=== PATIENT | male | born 1995 | race Caucasian/White ===

== ENCOUNTER 2016-11-22 05:26 | Emergency (ER) | payer OTHER ==
--- NOTE | 2016-11-22 06:54 | ER Document Report ---
HPI - HPI Patient complains to provider of: Cough and wheeze Onset: Other - 7 days Onset/Duration: Gradual Pain Level: 2 Context: 20-year-old non-smoker complaining of coughing, fever, and chest tightness for 7 days. He was coughing really bad this morning so he came into the emergency room. No vomiting or diarrhea. No shortness of breath. Associated Symptoms: None Exacerbated by: Coughing Relieved by: Denies Similar symptoms previously: No Recently seen / treated by doctor: No - ROS ROS below otherwise negative: Yes Systems Reviewed and Negative: Yes All other systems reviewed and negative - CARDIOVASCULAR Cardiovascular: DENIES: Chest pain - DERM Skin Color: Normal Past Medical History - General Information source: Patient - Social History Smoking Status: Never Smoker Chew tobacco use (# tins/day): No Frequency of alcohol use: None Drug Abuse: None Lives with: Family Family History: Reviewed & Not Pertinent - Medical History Medical History: Negative Renal/ Medical History: Denies: Hx Peritoneal Dialysis Surgical Hx: Negative Vertical Provider Document - CONSTITUTIONAL Agree With Documented VS: Yes Exam Limitations: No Limitations General Appearance: No Apparent Distress - HEENT HEENT: Normocephalic, Pharyngeal Erythema. negative: Tympanic Membrane Red - NECK Neck: Supple. negative: Lymphadenopathy-Left, Lymphadenopathy-Right - RESPIRATORY Respiratory: Rhonchi - Expiratory course, Wheezing - Expiratory bilateral O2 Sat by Pulse Oximetry: 99 - CARDIOVASCULAR Cardiovascular: Regular Rate, Regular Rhythm - GI/ABDOMEN Gastrointestinal: Abdomen Soft, Abdomen Non-Tender, No Organomegaly - MUSCULOSKELETAL/EXTREMETIES Musculoskeletal/Extremeties: MAEW, FROM - NEURO Level of Consciousness: Awake, Alert, Appropriate - DERM Integumentary: Warm, Dry, No Rash Course - Re-evaluation Re-evalutation: 11/22/16 08:59 chest xray is negative, lungs mostly clear after nebulizers, feels better. will tx with zithromax, prednisone, albuterol since sick for 7 days. He knows how to use the inhaler. 11/22/16 20:49 11/22/16 20:53 - Vital Signs Vital signs: Temp Pulse Resp BP Pulse Ox 98.1 F 76 18 139/96 H 99 11/22/16 05:31 11/22/16 05:31 11/22/16 05:31 11/22/16 05:31 11/22/16 05:31 Discharge - Discharge Clinical Impression: Bronchitis Condition: Good Disposition: HOME, SELF-CARE Instructions: Bronchitis With Bronchospasm (Wheezing) ([facility]), Inhaled Bronchodilators ([facility]), Steroid Medication, Azithromycin ([facility]), Family Physicians / Practices Additional Instructions: plenty of fluids to er if worse use the inhaler every 3-4 hours to help break up the mucous and get it out Please complete the patient satisfaction survey if you get one, and return it.. If you do not receive a survey, then you can go to the [facility] website, [email or web address] and place your comments about your very good care. Thank you very much. It was a pleasure being your medical provider today. Prescriptions: Albuterol Sulfate [Proair HFA Inhalation Aerosol 8.5 gm MDI] 2 puff IH Q3HP PRN #1 [email or web address] PRN Reason: Azithromycin [Zithromax] 250 mg PO DAILY #6 tablet Prednisone [Deltasone 20 mg Tablet] 40 mg PO DAILY #8 tablet Forms: Return to Work
[2016-11-22] MEDS ORDERED: IPRATROPIUM/ALBUTEROL 0.5-2.5 MG/3 ML AMPUL NEB ONE (07:07)
[2016-11-22] MEDS ORDERED: PREDNISONE 20 MG TABLET PO ONE (07:07)
[2016-11-22] MEDS ORDERED: ALBUTEROL SULFATE 0.083% NEB 2.5 MG/3 ML AMPUL NEB ONE (07:07)
--- NOTE | 2016-11-22 07:41 | RADIOLOGY REPORT (SQ) ---
EXAM DESCRIPTION: CHEST PA/LAT COMPLETED DATE/TIME: 11/22/2016 7:28 am REASON FOR STUDY: cough, fever 1 week COMPARISON: None. EXAM PARAMETERS: NUMBER OF VIEWS: two views TECHNIQUE: Digital Frontal and Lateral radiographic views of the chest acquired. RADIATION DOSE: NA LIMITATIONS: none FINDINGS: LUNGS AND PLEURA: No opacities, masses or pneumothorax. No pleural effusion. MEDIASTINUM AND HILAR STRUCTURES: No masses or contour abnormalities. HEART AND VASCULAR STRUCTURES: Heart normal size. No evidence for failure. BONES: No acute findings. HARDWARE: None in the chest. OTHER: No other significant finding. IMPRESSION: NO SIGNIFICANT RADIOGRAPHIC FINDING IN THE CHEST. TECHNICAL DOCUMENTATION: JOB ID: [id number] [employer]- All Rights Reserved
[2016-11-22 08:43] VITALS: BP 141/69
== END 2016-11-22 09:12 | disposition home or self-care (01) ==
LOC: ER 05:26
DX: J40 Bronchitis, not specified as acute or chronic (principal); R50.9 Fever, unspecified; R07.9 Chest pain, unspecified
CPT/HCPCS: 94640 ×2; 99283; 71020; J7512; J7620

== ENCOUNTER 2017-01-12 17:45 | Emergency (ER) | payer SELFPAY ==
[2017-01-12] MEDS ORDERED: IBUPROFEN 800 MG TABLET PO ONE (18:59)
[2017-01-12] MEDS ORDERED: CLINDAMYCIN HCL 150 MG CAPSULE PO ONE (18:59)
--- NOTE | 2017-01-12 19:03 | ER Document Report ---
HPI - HPI Patient complains to provider of: Right lower leg abscess Onset: Other Onset/Duration: Gradual - Wednesday Pain Level: 4 Context: 21-year-old nondiabetic male with a draining wound on the right lower lateral leg. He does not know if the spider bit him but it started as a very small area now it is large. No history of MRSA. Associated Symptoms: None Exacerbated by: Movement Relieved by: Denies Similar symptoms previously: No Recently seen / treated by doctor: No - ROS ROS below otherwise negative: Yes Systems Reviewed and Negative: Yes All other systems reviewed and negative - CARDIOVASCULAR Cardiovascular: DENIES: Chest pain - DERM Skin Color: Normal Past Medical History - General Information source: Patient - Social History Smoking Status: Current Every Day Smoker Chew tobacco use (# tins/day): No Frequency of alcohol use: None Drug Abuse: None Lives with: Spouse/Significant other Family History: Reviewed & Not Pertinent - Medical History Medical History: Negative Renal/ Medical History: Denies: Hx Peritoneal Dialysis Surgical Hx: Negative - Immunizations Hx Diphtheria, Pertussis, Tetanus Vaccination: Yes Vertical Provider Document - CONSTITUTIONAL Agree With Documented VS: Yes Exam Limitations: No Limitations - INFECTION CONTROL TRAVEL OUTSIDE OF THE [place] IN LAST 30 DAYS: No - HEENT HEENT: Atraumatic - NECK Neck: Supple - RESPIRATORY O2 Sat by Pulse Oximetry: 99 - MUSCULOSKELETAL/EXTREMETIES Musculoskeletal/Extremeties: MAEW, FROM, Tender - see below, Edema - NEURO Level of Consciousness: Awake, Alert Motor/Sensory: No Motor Deficit, No Sensory Deficit - DERM Integumentary: Abscess - right lateral lower mid leg, 1 cm area in center with necrotic issue, surrounding 2 cm cellulitis, pink 10 cm non tender inflammation. Course - Vital Signs Vital signs: Temp Pulse Resp BP Pulse Ox 98.7 F 86 18 133/94 H 99 01/12/17 17:58 01/12/17 17:58 01/12/17 17:58 01/12/17 17:58 01/12/17 17:58 Procedures - Incision and Drainage Right Lower Leg Time completed: 20:22 Type: Simple Anesthetic type: 1% Lidocaine mL's of anesthetic: 5 Blade size: 11 I&D procedure: Betadine prep applied, Sterile dressing applied Incision Method: Incision made by scalpel Amount/type of drainage: excised necrotic tissue, mild pus (pus had drained at home) Notes: 01/12/17 20:23 4 x 4 and coban Discharge - Discharge Clinical Impression: right lateral lower leg abscess, Incision and drainage Condition: Good Disposition: HOME, SELF-CARE Instructions: Abscess ([facility]), Anti-Inflammatory Medication ([facility]), Clindamycin ( [facility]), MRSA Cellulitis ([facility]), Post Incision and Drainage Additional Instructions: wound check in er tommorrow elevate warm compress take the antibiotics keep the dressing on for 2 days, then wash in shower with washclothe, antibacterial soap daily and dry dressing to er if worse Please complete the patient satisfaction survey if you get one, and return it.. If you do not receive a survey, then you can go to the [facility] website, [email or web address] and place your comments about your very good care. Thank you very much. It was a pleasure being your medical provider today. Prescriptions: Ibuprofen [Motrin 800 mg Tablet] 800 mg PO Q8HP PRN #30 tablet PRN Reason: Clindamycin HCl [Cleocin 150 mg Capsule] 300 mg PO TID #42 capsule Forms: Return to Work
[2017-01-12 20:44] VITALS: BP 132/77
== END 2017-01-12 20:33 | disposition home or self-care (01) ==
LOC: ER 17:45
PROC: 0H9KXZZ Drainage of Right Lower Leg Skin, External Approach (ICD-10-PCS; principal; 2017-01-12)
DX: L02.415 Cutaneous abscess of right lower limb (principal); F17.200 Nicotine dependence, unspecified, uncomplicated
CPT/HCPCS: 99283

== ENCOUNTER 2017-09-14 19:09 | Emergency (ER) | payer BC ==
--- NOTE | 2017-09-14 20:12 | ER Document Report ---
ED Medical Screen (RME) - General Chief Complaint: Abscess Stated Complaint: LEFT KNEE PAIN Time Seen by Provider: 09/14/17 20:07 Mode of Arrival: Wheelchair Information source: Patient Notes: Patient complains of abscess to left knee. Patient did pop the skin lesion and had increased pain to left knee. Patient complains of pain with flexion. Patient denies any fever. TRAVEL OUTSIDE OF THE [place] IN LAST 30 DAYS: No - Related Data Allergies/Adverse Reactions: No Known Allergies Allergy (Verified 01/12/17 18:47) Past Medical History Renal/ Medical History: Denies: Hx Peritoneal Dialysis - Immunizations Hx Diphtheria, Pertussis, Tetanus Vaccination: Yes Physical Exam - Vital signs Vitals: Temp Pulse Resp BP Pulse Ox 98.8 F 106 H 18 133/73 H 97 09/14/17 19:14 09/14/17 19:14 09/14/17 19:14 09/14/17 19:14 09/14/17 19:14 - Skin Skin Color: Erythema - Overlying the anterior aspect of left knee Course - Vital Signs Vital signs: Temp Pulse Resp BP Pulse Ox 98.8 F 106 H 18 133/73 H 97 09/14/17 19:14 09/14/17 19:14 09/14/17 19:14 09/14/17 19:14 09/14/17 19:14
--- NOTE | 2017-09-14 20:44 | ER Document Report ---
ED Skin Rash/Insect Bite/Abscs - General Mode of Arrival: Wheelchair Information source: Patient TRAVEL OUTSIDE OF THE [place] IN LAST 30 DAYS: No - HPI Patient complains to provider of: Tender/swollen area Onset: Yesterday Onset/Duration: Persistent Quality of pain: Throbbing Severity: Severe Pain Level: 5 Skin Character: Other - Swollen red area to the left knee after he "popped a pimple "yesterday Quality of rash: Painful Identify cause: Yes Exacerbated by: Movement, Walking Relieved by: Denies Similar symptoms previously: Yes Recently seen / treated by doctor: No <SONIA CONTRERAS - Last Filed: 09/15/17 02:24> <HU CORADO - Last Filed: 09/15/17 15:30> - General Chief Complaint: Abscess Stated Complaint: LEFT KNEE PAIN Time Seen by Provider: 09/14/17 20:07 Notes: 21-year-old male presents to ED for complaint of pain and swelling to the left knee. He states he popped a pimple on his left knee yesterday morning and he has had increasing pain and swelling to the left knee since then. 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 He states he has not had any fever has not checked his temperature and he is afebrile in the emergency room. He was seen and rapid medical evaluation done by a another provider who ordered some blood work when they ted his blood vasovagal and developed low blood pressure and diaphoresis. He denies any shortness of breath or heart problems or pain at this time. He states he just sometimes when people sticking with a needle he does pass out. (SONIA CONTRERAS) - Related Data Allergies/Adverse Reactions: No Known Allergies Allergy (Verified 01/12/17 18:47) Past Medical History - General Information source: Patient - Social History Smoking Status: Never Smoker Cigarette use (# per day): No Chew tobacco use (# tins/day): No Smoking Education Provided: No Frequency of alcohol use: Occasional Drug Abuse: None Occupation: Door to door sales Family History: Reviewed & Not Pertinent Patient has suicidal ideation: No Patient has homicidal ideation: No - Past Medical History Cardiac Medical History: Reports: None Pulmonary Medical History: Reports: None EENT Medical History: Reports: None Neurological Medical History: Reports: None Endocrine Medical History: Reports: None Renal/ Medical History: Reports: None Malignancy Medical History: Reports None GI Medical History: Reports: None Musculoskeltal Medical History: Reports None Skin Medical History: Reports None Psychiatric Medical History: Reports: None Traumatic Medical History: Reports: None Infectious Medical History: Reports: None Surgical Hx: Negative Past Surgical History: Reports: None - Immunizations Hx Diphtheria, Pertussis, Tetanus Vaccination: Yes <SONIA CONTRERAS - Last Filed: 09/15/17 02:24> Review of Systems - Review of Systems Constitutional: No symptoms reported EENT: No symptoms reported Cardiovascular: No symptoms reported Respiratory: No symptoms reported Gastrointestinal: No symptoms reported Genitourinary: No symptoms reported Male Genitourinary: No symptoms reported Musculoskeletal: No symptoms reported Skin: Other - Red swollen and painful area to the left knee where he states he "popped the pimple " Hematologic/Lymphatic: No symptoms reported Neurological/Psychological: No symptoms reported -: Yes All other systems reviewed and negative <SONIA CONTRERAS - Last Filed: 09/15/17 02:24> Physical Exam - Vital signs Interpretation: Normal - General General appearance: Appears well, Alert - HEENT Head: Normocephalic, Atraumatic Eyes: Normal Pupils: PERRL - Respiratory Respiratory status: No respiratory distress Chest status: Nontender Breath sounds: Normal Chest palpation: Normal - Cardiovascular Rhythm: Regular Heart sounds: Normal auscultation Murmur: No - Abdominal Inspection: Normal Distension: No distension Bowel sounds: Normal Tenderness: Nontender Organomegaly: No organomegaly - Back Back: Normal, Nontender - Extremities General upper extremity: Normal inspection, Nontender, Normal color, Normal ROM , Normal temperature General lower extremity: Normal ROM, Normal temperature, Normal weight bearing. No: Carlotta's sign Knee: Tender, Pain with ROM, Patellar tendon intact. No: Joint effusion - Neurological Neuro grossly intact: Yes Cognition: Normal Orientation: AAOx4 Siomara Coma Scale Eye Opening: Spontaneous [place]ara Coma Scale Verbal: Oriented [place] Coma Scale Motor: Obeys Commands Siomara Coma Scale Total: 15 Speech: Normal Motor strength normal: LUE, RUE, LLE, RLE Sensory: Normal - Psychological Associated symptoms: Normal affect, Normal mood - Skin Skin Temperature: Warm Skin Moisture: Dry Skin Color: Normal Character of irregularity: Erythematous Irregularity with: Swelling, Tenderness, Inflammation <SONIA CONTRERAS - Last Filed: 09/15/17 02:24> - Vital signs Vitals: Temp Pulse Resp BP Pulse Ox 98.8 F 106 H 18 133/73 H 97 09/14/17 19:14 09/14/17 19:14 09/14/17 19:14 09/14/17 19:14 09/14/17 19:14 Course - Laboratory Result Diagrams: 09/14/17 20:30 09/14/17 20:30 - Diagnostic Test Radiology reviewed: Image reviewed <SONIA CONTRERAS - Last Filed: 09/15/17 02:24> - Laboratory Result Diagrams: 09/14/17 20:30 09/14/17 20:30 <HU CORADO - Last Filed: 09/15/17 15:30> - Re-evaluation Re-evalutation: 09/14/17 21:[address] 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 He is afebrile and has not had any fever. He does have a superficial redness to the knee. There is no definite fluctuant area to the knee. There is redness and irritation. Dr. Corado recommended treating the patient with Keflex and Septra and discharged home to return to the ED for any increase in pain swelling or redness. Patient to use warm Epsom salt soaks to the knee at least 4 times a day. Patient verbalized understanding of instructions. Patient was given his first dose of Keflex and Septra in the emergency room and discharged home with prescriptions for Keflex and Septra. (SONIA CONTRERAS ) Pt with no evidence of septic arthritis. Full ROM of leftknee without pain. On evaluation, he had an anterior superficial left knee cellulitis. Given very strict return precautions, especially about signs of septic arthritis, and he understands. (HU CORADO) - Vital Signs Vital signs: Temp Pulse Resp BP Pulse Ox 99.3 F 79 18 119/70 97 09/14/17 21:28 09/14/17 21:28 09/14/17 21:28 09/14/17 21:28 09/14/17 21:28 - Laboratory Laboratory results interpreted by me: 09/14/17 09/14/17 20:30 20:30 WBC 13.4 H RBC 5.65 H Seg Neuts % (Manual) 80 H Lymphocytes % (Manual) 11 L Abs Neuts (Manual) 10.7 H Glucose 72 L Discharge <SONIA CONTRERAS - Last Filed: 09/15/17 02:24> <HU CORADO - Last Filed: 09/15/17 15:30> - Discharge Clinical Impression: superficial left knee cellulitis Condition: Stable Disposition: HOME, SELF-CARE Instructions: Acetaminophen, Family Physicians / Practices, Use of Over-The- Counter Ibuprofen ([facility]) Additional Instructions: CELLULITIS: You have an infection of your skin and underlying soft tissues called cellulitis. This is due to bacteria, which can enter through any break in the skin, or even through an irritated hair follicle. Untreated, cellulitis will usually worsen. Antibiotics are required. Usually, warm packs or warm soaks, and elevation of the infected area are recommended. You should start getting better within 24 to 36 hours. Most infections respond quickly to the right medication. Follow-up care is important, however, to check for abscess (boil) formation, unsuspected foreign body, or resistant infection. If you develop fever, chills, or if the area of infection is becoming rapidly more swollen or painful, call the doctor at once. TRIMETHOPRIM-SULFA: You have been given a prescription for trimethoprim-sulfa (TMS, Septra, Bactrim). This is a combination antibiotic of the sulfa class, often used for urinary tract infections, middle ear infections, bronchitis, shigella intestinal infection, and Pneumocystis pneumonia. TMS is usually well-tolerated. Occasional side effects include nausea and decreased appetite. Septra is not recommended for infants less than two months of age. Do not take this medication if you have experienced severe side effects or allergy to sulfa medicine. You should stop this medicine at once and contact your physician if you develop any rash, joint pain, shortness of breath, bruising, or jaundice ( yellow color in the skin), or if you develop any other new or unusual symptoms. CEPHALEXIN: The antibiotic you've been prescribed is a member of the cephalosporin class. This type of antibiotic covers a wide variety of infections, including those of the skin, lungs, and urinary tract. It's useful for staph infections. This antibiotic is slightly similar to the penicillin family. In rare cases , a person who is allergic to penicillin will also be allergic to this medication. If you have had a severe allergic reaction to penicillin, and have not taken this antibiotic since that time, notify your doctor. Antibiotics which cover many germs ("broad spectrum" antibiotics) are more likely to cause diarrhea or "yeast" infections. Women prone to vaginal yeast problems may suffer an attack after taking this antibiotic. In infants, oral thrush (white spots "stuck" on the cheek) or yeast diaper rash may result. See your doctor if these problems occur. Call at once if you develop itching, hives , shortness of breath, or lightheadedness. TRIMETHOPRIM-SULFA: You have been given a prescription for trimethoprim-sulfa (TMS, Septra, Bactrim). This is a combination antibiotic of the sulfa class, often used for urinary tract infections, middle ear infections, bronchitis, shigella intestinal infection, and Pneumocystis pneumonia. TMS is usually well-tolerated. Occasional side effects include nausea and decreased appetite. Septra is not recommended for infants less than two months of age. Do not take this medication if you have experienced severe side effects or allergy to sulfa medicine. You should stop this medicine at once and contact your physician if you develop any rash, joint pain, shortness of breath, bruising, or jaundice ( yellow color in the skin), or if you develop any other new or unusual symptoms. Epsom Salt Soaks Soak the wound area in a container of warm epsom salt water. If you can't get the wound area into a bucket or mcdowell, use a folded towel soaked in the epsom salt solution and apply to the area. Use clean hot tap water (about the temperature of a very warm bath), mixing in about one (1) teaspoon for every pint of water. Two gallon --> 16 teaspoons Epsom Salts One gallon --> 8 teaspoons Epsom Salts Two quarts --> 4 teaspoons Epsom Salts One quart --> 2 teaspoons Epsom Salts Soak the wound for about 20 minutes while gently moving it around in the water. Repeat this four (4) times a day. Elevation & Warmth The area should be elevated as much as possible over the next 48 hours. Try to keep it above the level of your heart. Apply gentle heat and salt soaks for about 20 to 30 minutes at least four times daily. Warmth and elevation will help you make a more rapid recovery, and will ease the pain considerably. FOLLOW-UP CARE: If you have been referred to a physician for follow-up care, call the physician s office for an appointment as you were instructed or within the next two days. If you experience worsening or a significant change in your symptoms, notify the physician immediately or return to the Emergency Department at any time for re-evaluation. Return to the emergency room for any increase in pain, redness to the area outside of the line that I marked for you, swelling, or any other concerns. Please take your any body aches until the completed Prescriptions: Cephalexin Monohydrate [Keflex 500 mg Capsule] 500 mg PO Q6H 5 Days capsule Sulfamethoxazole/Trimethoprim [Septra-Ds 800-160 mg Tablet] 1 tab PO BID #20 tablet Forms: Return to Work Referrals: RACHEL QUINTEROS MD [ACTIVE STAFF] - Follow up as needed
[2017-09-14 20:50] LABS: HEMOGLOBIN 16.8 g/dL (13.5-17.0); MEAN CORPUSCULAR HEMOGLOBIN 29.7 pg (27.0-33.4); MEAN CORPUSCULAR HGB CONC 34.9 g/dL (32.0-36.0); MEAN CORPUSCULAR VOLUME 85 fl (80-97); PLATELET COUNT 257 10^3/uL (150-450); RED BLOOD COUNT 5.65 10^6/uL (4.35-5.55); WHITE BLOOD COUNT 13.4 10^3/uL (4.0-10.5)
[2017-09-14 21:05] LABS: ANION GAP 15 (5-19); BLOOD UREA NITROGEN 14 mg/dL (7-20); CARBON DIOXIDE 27 mmol/L (22-30); CHLORIDE 100 mmol/L (98-107); GLUCOSE 72 mg/dL (75-110); POTASSIUM 4.2 mmol/L (3.6-5.0)
[2017-09-14 21:08] LABS: ABSOLUTE LYMPHOCYTES# (MANUAL) 1.5 10^3/uL (0.5-4.7); ABSOLUTE MONOCYTES # (MANUAL) 0.7 10^3/uL (0.1-1.4); ABSOLUTE NEUTROPHILS# (MANUAL) 10.7 10^3/uL (1.7-8.2); BASOPHILS % (MANUAL) 0 % (0-2); EOSINOPHILS % (MANUAL) 4 % (0-6); LYMPHOCYTES % (MANUAL) 11 % (13-45); MONOCYTES % (MANUAL) 5 % (3-13); SEGMENTED NEUTROPHILS % (MAN) 80 % (42-78); TOTAL CELLS COUNTED 100
[2017-09-14 21:09] LABS: PLATELET COMMENT ADEQUATE; RBC MORPHOLOGY COMMENT NORMO-CYTIC/CHROMIC
[2017-09-14] MEDS ORDERED: SULFAMETHOXAZOLE/TRIMETHOPRIM 800-160 MG TABLET PO ONE (21:22)
[2017-09-14] MEDS ORDERED: CEPHALEXIN 500 MG CAPSULE PO ONE (21:22)
--- NOTE | 2017-09-14 21:26 | RADIOLOGY REPORT (SQ) ---
EXAM DESCRIPTION: KNEE LEFT 4 VIEW COMPLETED DATE/TIME: 09/14/2017 8:47 pm REASON FOR STUDY: pain swelling and infection COMPARISON: None. NUMBER OF VIEWS: Four views. TECHNIQUE: AP, lateral, and both oblique radiographic images acquired of the left knee. LIMITATIONS: None. FINDINGS: MINERALIZATION: Normal. BONES: No acute fracture or dislocation. No worrisome bone lesions. JOINT: Small effusion. SOFT TISSUES: Mild soft tissue swelling. No radio-opaque foreign body. OTHER: No other significant finding. IMPRESSION: Small joint effusion. Mild soft tissue swelling. No fracture. TECHNICAL DOCUMENTATION: JOB ID: [id number] [place]-[id number] 2010 [employer]- All Rights Reserved Reading location - IP/workstation name: [email or web address]
[2017-09-14 21:30] VITALS: BP 119/70
== END 2017-09-14 21:43 | disposition home or self-care (01) ==
LOC: ER 19:09
DX: L03.116 Cellulitis of left lower limb (principal)
CPT/HCPCS: 36415; 80048; 85025; 87040; 99283

== ENCOUNTER 2019-02-26 23:37 | Emergency (ER) | payer BC ==
[2019-02-26 23:43] VITALS: BP 144/92
--- NOTE | 2019-02-26 23:55 | ER Document Report ---
ED General - General Chief Complaint: Insect Bite Stated Complaint: POSS SPIDER BITE Time Seen by Provider: 02/26/19 23:55 Notes: Patient is a 23-year-old male that presents to the emergency department for chief complaint of left leg redness and possible insect bite. Patient states that 4 days ago he started noticing some swelling in his left lower leg with redness and it seemingly got worse over the past 3 days he states that he tried draining it a few times at home and applying warm compresses but it seemed to progress 3 decided to come to the emergency department this evening. He states he has had abscesses in the past that needed drained. He denies any any fevers, chills, night sweats, chest pain, shortness of breath or difficulty breathing. Denies having any nausea, vomiting or abdominal pain. He does have pain associated with this, describes it as a aching sensation that is constant, as a 4 out of 10. Past Medical History: Denies chronic medical conditions Past Surgical History: Denies surgical history Social History: Admits to smoking cigarettes, denies alcohol or drug use. Family History: Reviewed and noncontributory for presenting illness Allergies: Reviewed, see documented allergy list. REVIEW OF SYSTEMS: Other than noted above, the 12 point review of systems was reviewed with the patient and were negative, all pertinent findings are included in the HPI. PHYSICAL EXAMINATION: Vital signs reviewed, nursing noted reviewed. GENERAL: Well-appearing, well-nourished and in no acute distress. HEAD: Atraumatic, normocephalic. EYES: Eyes appear normal, extraocular movements intact, sclera anicteric, co njunctiva are normal. ENT: nares patent, oropharynx clear without exudates. Moist mucous membranes. NECK: Normal range of motion, supple without lymphadenopathy LUNGS: Breath sounds clear to auscultation bilaterally and equal. No wheezes rales or rhonchi. HEART: Regular rate and rhythm without murmurs ABDOMEN: Soft, nontender, normoactive bowel sounds. No rebound, guarding, or rigidity. No masses appreciated. EXTREMITIES: The left lower extremity is noted to have an area of ulceration and likely recently opened abscess, with mild bloody purulent drainage, and one more proximal to that that is smaller, but no fluctuance appreciated. The larger lesion measures approximately 0.5 cm x 0.5 cm. There is surrounding erythema, that measures 5 cm in diameter associated with this, with induration measuring about 3 cm in diameter. There is subtle lymphangitis extending towards the knee. There is no tenderness in the groin or lymphangitis noted in the groin or lymphadenopathy and in the groin. The rest the patient's extremity exam is grossly unremarkable. NEUROLOGICAL: No focal neurological deficits. Moves all extremities spontaneously Motor and sensory grossly intact on exam. PSYCH: Normal mood, normal affect. SKIN: Warm, Dry, normal turgor, no rashes or lesions noted on exposed skin TRAVEL OUTSIDE OF THE [place] IN LAST 30 DAYS: No - Related Data Allergies/Adverse Reactions: No Known Allergies Allergy (Verified 01/12/17 18:47) Past Medical History - Social History Smoking Status: Current Every Day Smoker Family History: Reviewed & Not Pertinent Patient has suicidal ideation: No Patient has homicidal ideation: No Renal/ Medical History: Denies: Hx Peritoneal Dialysis - Immunizations Hx Diphtheria, Pertussis, Tetanus Vaccination: Yes Physical Exam - Vital signs Vitals: Temp Pulse Resp BP Pulse Ox 98.5 F 96 22 H 144/92 H 99 02/26/19 23:41 02/26/19 23:41 02/26/19 23:41 02/26/19 23:41 02/26/19 23:41 Course - Re-evaluation Re-evalutation: Patient seen and examined, vital signs reviewed, patient's clinical exam is most consistent with recent abscess with cellulitis, will start him on Bactrim and Keflex, patient does not appear clinically toxic, or ill, do not think blood work or IV antibiotics is warranted at this time. Patient will be given a week's worth of both prescriptions, advised to monitor for any worsening redne ss, or spreading more proximally, which he was understanding and agreeable with. - Vital Signs Vital signs: Temp Pulse Resp BP Pulse Ox 98.5 F 96 22 H 144/92 H 99 02/26/19 23:41 02/26/19 23:41 02/26/19 23:41 02/26/19 23:41 02/26/19 23:41 Discharge - Discharge Clinical Impression: Cellulitis Qualifiers: Site of cellulitis: extremity Site of cellulitis of extremity: lower extremity Laterality: left Qualified Code(s): L03.116 - Cellulitis of left lower limb Condition: Stable Disposition: HOME, SELF-CARE Instructions: Cellulitis ([facility]) Additional Instructions: Please complete the entire course of antibiotics as prescribed, if you notice worsening redness and spreading up your leg, despite taking the antibiotics, please return to the emergency department sooner to be reevaluated. Prescriptions: Sulfamethoxazole/Trimethoprim [Bactrim Ds Tablet] 1 each PO BID #14 tablet Cephalexin Monohydrate [Keflex 500 mg Capsule] 500 mg PO TID 7 Days #21 capsule Referrals: [facility] [Provider Group] - Follow up in 3-5 days (primary care. )
[2019-02-27] MEDS ORDERED: CEPHALEXIN 500 MG CAPSULE PO ONE (00:22)
[2019-02-27] MEDS ORDERED: SULFAMETHOXAZOLE/TRIMETHOPRIM 800-160 MG TABLET PO ONE (00:22)
== END 2019-02-27 00:48 | disposition home or self-care (01) ==
LOC: ER 23:37
DX: L03.116 Cellulitis of left lower limb (principal); F17.210 Nicotine dependence, cigarettes, uncomplicated
CPT/HCPCS: 99283